=== PATIENT | female | born 1985 ===

== ENCOUNTER 2022-10-16 08:15 | Inpatient (IN) | payer OTHER ==
[2022-10-16] MEDS ORDERED: OXYTOCIN 30 UNITS in 0.9% NS 30 UNIT/500 ML INFUS.BAG IVPB SCH (09:30)
[2022-10-16] MEDS: ELECTROLYTE-148 SOLN 1,000 ML IV SCH ×2 (09:30→16:30)
[2022-10-16 10:09] VITALS: BMI 40.9
[2022-10-16 10:25] LABS: BASO % 0.2 % (0-2.0); EOS % 0.7 % (0-4.5); HEMATOCRIT 33.6 % (32.4-45.2); HEMOGLOBIN 11.3 GM/dL (10.7-15.3); LYMPH % 22.2 % (8-40); MCH 27.8 pg (25.7-33.7); MCHC 33.6 g/dl (32.0-36.0); MEAN CELL VOLUME 82.9 fl (80-96); MEAN PLT VOLUME 8.1 fl (7.5-11.1); MONO % 6.3 % (3.8-10.2); NEUT % 70.6 % (42.8-82.8); PLATELET COUNT 209 10^3/uL (134-434); RBC 4.06 M/mm3 (3.60-5.2); RDW 15.7 % (11.6-15.6); WHITE BLOOD COUNT 9.6 K/mm3 (4.0-10.0)
[2022-10-16 10:31] LABS: INR 0.99 (0.83-1.09); PROTHROMBIN TIME (PATIENT) 11.5 SEC (9.7-13.0)
[2022-10-16 10:34] LABS: ACTIVATED PTT 26.2 SECONDS (25.2-36.5)
[2022-10-16 10:45] LABS: POTASSIUM 3.9 mmol/L (3.5-5.1)
[2022-10-16 10:46] LABS: CALCIUM 8.6 mg/dL (8.5-10.1)
[2022-10-16 10:47] LABS: BLOOD UREA NITROGEN 8.6 mg/dL (7-18)
[2022-10-16 10:50] LABS: CREATININE 0.6 mg/dL (0.55-1.3)
[2022-10-16] MEDS ORDERED: CITRIC ACID/SODIUM CITRATE 30 ML UNIT-DOSE CUP PO ONE (22:00)
[2022-10-16] MEDS ORDERED: FENTANYL/BUPIVACAINE/NS/PF - PCEA - 50 ML DISP.SYRIN EP ONE ×2 (23:27→23:32)
[2022-10-16] MEDS ORDERED: BUPIVACAINE HCL/PF 0.25% (2.5MG/ML) 10 ML VIAL ONE (23:32)
[2022-10-16] MEDS ORDERED: LIDO 2%/EPI 1:200000 PRESRVFRE (20 ML SDVIAL) ONE (23:33)
[2022-10-17] MEDS ORDERED: FENTANYL/BUPIVACAINE/NS/PF - PCEA - 50 ML DISP.SYRIN EP SCH
[2022-10-17] MEDS ORDERED: NALOXONE HCL 0.4 MG/ML VIAL IVPUSH PRN
[2022-10-17] MEDS ORDERED: OXYTOCIN 20 UNITS in 0.9% NS 20 UNIT/1,000 ML INFUS.BAG IV ONE ×2 (00:57→00:58)
[2022-10-17] MEDS ORDERED: LIDOCAINE HCL 1% PRESERVATIVE FREE - 30ML VIAL ONE (00:59)
[2022-10-17] MEDS ORDERED: METHYLERGONOVINE MALEATE 0.2 MG/1 ML AMP IM PRN (01:40)
[2022-10-17] MEDS ORDERED: BENZOCAINE 28 GM HEMORRHOIDAL OINTMENT TP PRN (01:40)
[2022-10-17] MEDS ORDERED: BENZOCAINE 20% 57 GM BOTTLE TP PRN (01:40)
[2022-10-17] MEDS ORDERED: BISACODYL 10 MG SUPP.RECT RC PRN (01:40)
[2022-10-17] MEDS ORDERED: WITCH HAZEL 50% (TUCKS) 40 PAD/JAR PAD TP PRN (01:40)
[2022-10-17] MEDS ORDERED: OXYTOCIN 20 UNITS in 0.9% NS 20 UNIT/1,000 ML INFUS.BAG IV SCH (01:45)
[2022-10-17] MEDS: ACETAMINOPHEN 325 MG TABLET (FP) PO PRN ×4 (03:31→14:44)
[2022-10-17] MEDS: FERROUS SO4 325 MG TABLET (FP) PO SCH ×3 (08:43→18:32)
[2022-10-17] MEDS: IBUPROFEN 600 MG TABLET (FP) PO PRN ×4 (08:43→23:07)
[2022-10-17] MEDS: PRENATAL VITAMINS W/ FOLIC ACID TABLET (FP) PO SCH (09:03)
[2022-10-17 13:10] LABS: POC NITRAZINE NEG
[2022-10-18] MEDS: ACETAMINOPHEN 325 MG TABLET (FP) PO PRN ×2 (02:28→20:35)
[2022-10-18] MEDS: IBUPROFEN 600 MG TABLET (FP) PO PRN ×3 (04:34→17:38)
[2022-10-18] MEDS: FERROUS SO4 325 MG TABLET (FP) PO SCH ×3 (08:15→17:38)
[2022-10-18] MEDS: oxyCODONE HCL 5 MG TABLET PO PRN (08:15)
[2022-10-18 08:22] LABS: BASO % 0.2 % (0-2.0); EOS % 1.7 % (0-4.5); HEMATOCRIT 31.6 % (32.4-45.2); HEMOGLOBIN 10.5 GM/dL (10.7-15.3); LYMPH % 29.3 % (8-40); MCH 27.7 pg (25.7-33.7); MCHC 33.2 g/dl (32.0-36.0); MEAN CELL VOLUME 83.4 fl (80-96); MEAN PLT VOLUME 8.3 fl (7.5-11.1); MONO % 5.3 % (3.8-10.2); NEUT % 63.5 % (42.8-82.8); PLATELET COUNT 194 10^3/uL (134-434); RBC 3.79 M/mm3 (3.60-5.2); RDW 16.1 % (11.6-15.6); WHITE BLOOD COUNT 8.8 K/mm3 (4.0-10.0)
[2022-10-18] MEDS: PRENATAL VITAMINS W/ FOLIC ACID TABLET (FP) PO SCH (10:02)
[2022-10-18] MEDS ORDERED: SENNOSIDES/DOCUSATE COMBO (SENNA PLUS) TABLET (UD) PO PRN (22:00)
[2022-10-19] MEDS: oxyCODONE HCL 5 MG TABLET PO PRN ×2 (00:13→09:14)
[2022-10-19] MEDS: IBUPROFEN 600 MG TABLET (FP) PO PRN ×2 (02:48→15:16)
[2022-10-19] MEDS: FERROUS SO4 325 MG TABLET (FP) PO SCH ×2 (09:04→12:40)
[2022-10-19] MEDS: PRENATAL VITAMINS W/ FOLIC ACID TABLET (FP) PO SCH (09:14)
[2022-10-19 14:58] VITALS: BP 118/81; PULSE 96; RESP 17; TEMP 97.9
== END 2022-10-19 16:00 | disposition home or self-care (01) | DRG 807 ==
LOC: JLDR 08:15 → J3W 10-17 03:13
PROVIDERS: ADMIT Obstetrics & Gynecology; ATTEND Obstetrics & Gynecology
PROC: 10E0XZZ Delivery of Products of Conception, External Approach (ICD-10-PCS; principal; 2022-10-17)
DX: O99.214 Obesity complicating childbirth (principal); Z3A.39 39 weeks gestation of pregnancy; Z37.0 Single live birth
CPT/HCPCS: 36415; 80048; 83986-QW; 85025; 85610; 85730; 86780; 86850; 86900; 86901